=== PATIENT | female | born 1990 | race Caucasian/White ===

== ENCOUNTER 2022-09-01 08:59 | Emergency (ER) | payer OTHER, SELFPAY ==
[2022-09-01 09:03] VITALS: BP 114/78; PULSE 88; RESP 16; TEMP 36.3; O2SAT 100; BMI 25.5
--- NOTE | 2022-09-01 09:27 | ED.ABDPAIN ---
HPI - Abdominal Pain General Chief Complaint: Abdominal Pain Stated Complaint: Abd pain sent by urgent care Time Seen by Provider: 09/01/22 09:26 Source: patient Mode of arrival: ambulatory Limitations: no limitations History of Present Illness HPI narrative: 32-year-old female who presents emergency department for evaluation of abdominal pain . The patient was seen at urgent care and found to have left lower quadrant tenderness, there was a concerned about ovarian torsion therefore she was sent to the emergency department. Patient states that she has been having abdominal pain for approximately 6 weeks. She states the pain is a constant gas like pain. She states the pain waxes and wanes in intensity. The pain is worse in her left lower quadrant area. She states that occasionally the pain is a cramping/sharp pain. Patient denies constipation but states she has soft stools. She denied fever, chills, rhinorrhea, sore throat, cough, chest pain, shortness of breath. She has had intermittent nausea with no vomiting. She states she has had frequency and urgency but no dysuria. She states that occasionally her stools black. She has not noticed any blood in the stool. She denies any weight loss or weight gain. Patient states that she started a new control pill in December of 2021 to stop her menses. She states she has occasional bleeding. She cannot tell me when her last menstrual period occurred. The patient is traveling to [place] today to get . She states she is leaving the country today at 14:00. Related Data Previous Rx's Medication Instructions Recorded ondansetron 4 mg disintegrating 4 mg PO Q6-8H PRN nausea and 09/01/22 tablet vomiting #14 tabs Allergies Allergy/AdvReac Type Severity Reaction Status Date / Time No Known Allergies Allergy Verified 09/01/22 09:03 Review of Systems Review of Systems Yes all other systems are reviewed and are negative [facility] Past Medical History [facility] Narrative: Past medical history: None. Past surgical history: Bilateral herniorrhaphy-20 years prior. Social history: Denies tobacco use, she occasionally drinks alcohol. Social History Social History Advance Directives: No Advance Directives Information Provided: No Physical Exam ED Vital Signs: Vital Signs - 24 hr 09/01/22 09:03 Temperature 97.4 F Pulse Rate 88 Respiratory Rate 16 Blood Pressure 114/78 Pulse Oximetry 100 Oxygen Delivery Method Room Air BMI result Body Mass Index 25.5 Const General: cooperative and no acute distress Orientation/consciousness: oriented to person and oriented to place Limitations: no limitations HENMT Head: Yes normal to inspection, Yes normocephalic and Yes atraumatic Ears: external ears normal General nose exam: Normal external nose present Face and sinus: Yes normal facial exam Mouth: Normal oral and palatal mucosa present Throat: Yes posterior oropharynx normal Eyes General: appearance normal, both eyes and all related structures Neck Neck: Yes normal visual inspection, Yes no lymphadenopathy, Yes trachea midline and Yes supple Chest Chest palpation & inspection: normal inspection of the chest and normal palpation of entire chest wall Resp Effort & Inspection: normal respiratory effort and able to speak in complete sentences Auscultation: clear to auscultation bilaterally Cardio Rate: regular rate Rhythm: regular rhythm Heart sounds: S1 normal heart sound present, S2 normal heart sound present and no murmurs GI Other: Patient's abdomen is soft, nondistended, she has normoactive bowel sounds, she has diffuse mild abdominal tenderness with moderate left lower quadrant tenderness, there is no rebound, no voluntary or involuntary guarding General: Yes no CVA tenderness Back/Spine/Pelvis Back: no CVA tenderness Skin General skin exam: no rashes or lesions noted Neuro General: oriented to person and oriented to place Cognition (Neuro): normal cognition Motor exam (neuro): 5/5 motor strength present throughout Extrem General: Yes normal to inspection Psych Appearance: grossly normal Speech and movement: Normal speech and movement present Affect: normal affect Attitude: cooperative Medical Decision Making Medical Decision Making [facility] Narrative: 32-year-old female who presents emergency department for evaluation of lower abdominal pain x6 weeks, pain is constant and varies from gas like pain to cramping and sharp pain. Patient has soft stools with no constipation, she occasionally notes black stools. She does not have diarrhea or bloody stools. She had urinary frequency and urgency but no dysuria. She was seen at a local urgent care clinic found to have left lower quadrant tenderness and referred to the emergency department to be ruled out for ovarian cyst/torsion. I ordered urinalysis and urine test, pelvic duplex ultrasound, vaginal ultrasound. Differential Diagnosis Differential diagnosis includes but is not limited to ovarian cyst, ovarian torsion, ectopic , inflammatory bowel disease, irritable bowel syndrome Admission/Observation Consideration of admission/observation: Escalation of care including admission/observation considered Lab Data [facility] Lab Attestation statement: I reviewed the patient's lab results. My interpretation of the patient's laboratory evaluation is as follows: Urinalysis was negative, urinalysis was negative, these tests were normal Labs: Lab Results 09/01/22 09/01/22 Range/Units 09:47 09:47 Urine Color Yellow Urine Appearance Clear Urine pH 6.5 (5.0-9.0) Ur Specific [place] 1.010 (1.005-1.025) Urine Protein Negative (Neg-Trace) mg/dL Urine Glucose (UA) Negative (Negative) mg/dL Urine Ketones Negative (Negative) mg/dL Urine Blood Negative (Negative) Urine Nitrite Negative (Negative) Ur Leukocyte Esterase Negative (Negative) Urine Test NEGATIVE (NEGATIVE) Radiology Impression Discussion of test interpretation with radiology: I have reviewed the radiologist's reading. Radiologist Impression: US pelvic ovarian doppler IMPRESSION: No significant abnormality identified. No evidence of ovarian torsion. Dictated By:Jayesh Hummel MD Discharge Plan Discharge Clinical Impression: Abdominal pain Patient Disposition: Home, Self-Care Instructions: Abdominal Pain (ED) Additional Instructions: Your pelvic ultrasound revealed no ovarian cyst and no ovarian torsion. Take ibuprofen 200 mg pills, 3 pills every 6 hours as needed for pain. Take Tylenol (acetaminophen) 500 mg pills, 2 pills every 4 to 6 hours as needed for pain. Take Zofran ODT 4 mg pills, 1 pill dissolved in your mouth every 8 hours as needed for nausea and vomiting. My impression is that you may have irritable bowel syndrome as the cause of your pain but this may require more testing to exclude other possible causes of abdominal pain Follow-up with your doctor in when you return from your waiting to discuss further workup. Please see emergency care if your symptoms get worse or if you develop any symptoms that are concerning to you. Prescriptions: New ondansetron 4 mg tablet,disintegrating 4 mg PO Q6-8H PRN (Reason: nausea and vomiting) Qty: 14 0RF Interventions: ED Discharge Assessment Last Done: 09/01/22 10:31 Discharge Date/Time: 09/01/22 10:32
== END 2022-09-01 10:32 | disposition home or self-care (01) ==
PROVIDERS: Emergency Provider Emergency Medicine Emergency Medical Services; PCP Nurse Practitioner Family
DX: R10.32 Left lower quadrant pain (principal)
CPT/HCPCS: 76856; 81003; 81025; 93975; 99282; 99284